=== PATIENT | female | born 1960 | race Caucasian/White ===

== ENCOUNTER 2024-02-12 20:19 | Inpatient (IN) | payer BC, MEDICARE, SELFPAY ==
[2024-02-12] VITALS (11 sets, daily range): BP systolic 140; BP diastolic 104; PULSE 60–76; RESP 22; TEMP 36.6; O2SAT 87–99; BMI 20.7
--- NOTE | 2024-02-12 20:46 | ED.GENADULT ---
HPI - General Adult General Date Seen: 02/12/24 Chief complaint: Fall/Minor Trauma Stated complaint: Fall Time Seen by Provider: 02/12/24 20:46 History of Present Illness HPI narrative: This is a 63-year-old generally healthy female presenting to the ER this evening for evaluation of injuries after she had a ground level fall. She was walking her dog and it abruptly pulled hard on its leash and pulled her forward. She fell because the dog pulled her off balance. She landed on her side and scraped her right knee and injured her right shoulder. She is having severe right shoulder pain and really in minimal to no pain in the right knee at all. She did not hit her head or injure her neck. She has severe 10/10 pain in her right upper arm and right shoulder. Also an abrasion to her right knee a. Related Data Home Medications Medication Instructions Recorded Confirmed fluticasone propionate 50 intranasal 02/13/24 mcg/actuation nasal spray,suspension ibuprofen 200 mg tablet (IBU-200) 200 mg PO Q8H PRN 02/13/24 02/13/24 Allergies Allergy/AdvReac Type Severity Reaction Status Date / Time No Known Drug Allergies Allergy Verified 02/12/24 20:31 PFSH [facility] Medical History (Updated 02/13/24 @ 00:29 by Kirt Rosario MD) Concussion ?S06.0XAA - Concussion with loss of consciousness status unknown, initial encounter (ICD-10) Humeral fracture ?S42.309A - Unspecified fracture of shaft of humerus, unspecified arm, initial encounter for closed fracture (ICD-10) Ureterolithiasis ?N20.1 - Calculus of ureter (ICD-10) Surgical History (Updated 02/12/24 @ 23:18 by Kirt Rosario MD) H/O lithotripsy ?Z98.890 - Other specified postprocedural states (ICD-10) History of hysterectomy ?Z90.710 - Acquired absence of both cervix and uterus (ICD-10) History of ureter stent Family History (Updated 02/13/24 @ 00:17 by Kirt Rosario MD) Father Diabetes Alzheimers disease Mother Osteoporosis Alzheimers disease Son Marfan syndrome Social History Smoking Status: Never smoker Do you use any of these nicotine containing products: None How often do you have a drink containing alcohol: never How often do you have six or more drinks on one occasion: Never AUDIT-C Alcohol total score: 0 Non-prescribed substance use: denies use Exam Narrative: Exam Narrative: Constitutional: Appears well-developed and well-nourished. Alert. Very uncomfortable due to shoulder pain. supportively at her side. HENT: Head: Atraumatic. Nose: Nose normal. Mouth/Throat: Oral mucosa is clear and moist. no trismus. Pharynx normal. Eyes: Conjunctivae normal. EOM normal. Pupils equal, round, and reactive to light. No scleral icterus. Neck: Normal range of motion. Neck supple. No tracheal deviation present. No posterior midline tenderness or step-off. Cardiovascular: Normal rate, regular rhythm. No gallop. No friction rub. No murmur heard. Symmetric radial artery pulses Pulmonary/Chest: Effort normal. No stridor. No respiratory distress. No wheezes. No rales. No rhonchi . No tenderness. Abdominal: Soft. Bowel sounds normal. No distension. No mass. No tenderness. No rebound. No guarding. Musculoskeletal: RUE: Range of motion limited by shoulder pain. She has tenderness over the shoulder with some swelling but no definitive deformity. Distal humerus, elbow, forearm, wrist, hand, fingers, thumb are nontender. Intact axillary, radial, median, ulnar nerve sensory function. LUE: Normal range of motion. No tenderness. No deformity RLE: Normal range of motion. No edema. No tenderness. No deformity superficial abrasion over anterior knee. No bony tenderness or deformity. LLE: Normal range of motion. No edema. No tenderness. No deformity Neurological: Alert and oriented to person, place, and time. Normal strength. CN II-VII intact. No sensory deficit. GCS eye subscore is 4. GCS verbal subscore is 5. GCS motor subscore is 6. Normal coordination Skin: Skin is warm and dry. No rash noted. No pallor. Normal capillary refill. Psychiatric: Normal mood. Uncomfortable due to pain Const: Vital Signs, click to edit/add: Vital Signs - 24 hr 02/12/24 20:27 02/12/24 20:28 02/12/24 20:29 Temperature 97.9 F Pulse Rate 60 66 Pulse Rate [Left P ulse Oximeter] 68 Respiratory Rate 22 Blood Pressure 140/104 H Blood Pressure [Ri ght Upper Arm] 140/104 H Pulse Oximetry 98 97 98 Oxygen Delivery Me thod Room Air 02/12/24 20:30 02/12/24 20:48 02/12/24 21:00 Temperature Pulse Rate 61 66 74 Pulse Rate [Left P ulse Oximeter] Respiratory Rate Blood Pressure Blood Pressure [Ri ght Upper Arm] Pulse Oximetry 98 99 98 Oxygen Delivery Me thod 02/12/24 21:15 02/12/24 21:30 02/12/24 22:29 Temperature Pulse Rate 66 66 73 Pulse Rate [Left P ulse Oximeter] Respiratory Rate Blood Pressure Blood Pressure [Ri ght Upper Arm] Pulse Oximetry 95 97 87 L Oxygen Delivery Me thod 02/12/24 22:30 02/12/24 22:45 02/13/24 00:00 Temperature Pulse Rate 68 76 Pulse Rate [Left P ulse Oximeter] 76 Respiratory Rate 16 Blood Pressure Blood Pressure [Ri ght Upper Arm] 106/66 Pulse Oximetry 90 93 95 Oxygen Delivery Me od Room Air Course Vital Signs Vital signs: Initial Vital Signs Temperature 97.9 F 02/12/24 20:27 Temperature Source Temporal Artery Scan 02/12/24 20:27 Pulse Rate 68 02/12/24 20:27 Pulse Rhythm Regular 02/12/24 20:27 Respiratory Rate 22 02/12/24 20:27 Blood Pressure 140/104 H 02/12/24 20:27 Blood Pressure Mean 116 H 02/12/24 20:27 Blood Pressure Position Semi-Fowlers 02/12/24 20:27 Pulse Oximetry 98 02/12/24 20:27 Oxygen Delivery Method Room Air 02/12/24 20:27 Vital Signs Temperature 97.9 F 02/12/24 20:27 Pulse Rate 68 02/12/24 20:27 Respiratory Rate 22 02/12/24 20:27 Blood Pressure 140/104 H 02/12/24 20:27 Pulse Oximetry 98 02/12/24 20:27 Oxygen Delivery Method Room Air 02/12/24 20:27 Temperature 97.9 F 02/12/24 20:27 Pulse Rate 76 02/13/24 00:00 Respiratory Rate 16 02/13/24 00:00 Blood Pressure 106/66 02/13/24 00:00 Pulse Oximetry 95 02/13/24 00:00 Oxygen Delivery Method Room Air 02/13/24 00:00 Medications Administered Medications: Generic Name Dose Route Start Last Admin Trade Name Santanaq PRN Reason Stop Dose Admin Hydromorphone HCl 0.5 - 1 mg 02/12/24 23:19 02/13/24 01:26 Hydromorphone 0.5 Mg/0.5 Ml Inj IVP 1 mg Q1H PRN Administration Lactated Ringer's 1,000 mls @ 75 mls/hr 02/12/24 23:20 02/13/24 01:23 Lactated Ringers 1000 Ml IV 75 mls/hr .[id number] ART Administration Ondansetron HCl 4 mg 02/12/24 23:19 02/12/24 23:41 Ondansetron 2 Mg/Ml Inj IVP 4 mg Q4H PRN Administration Nausea Discontinued Medications Generic Name Dose Route Start Last Admin Trade Name Santanaq PRN Reason Stop Dose Admin Bupivacaine HCl/Epinephrine Bitart 30 ml 02/12/24 23:51 02/13/24 00:24 Bupivacaine 0.25 %/Epi 1:200k 30 Ml INJECTION 02/12/24 23:52 30 ml ONCE ONE Administration Fentanyl 50 mcg 02/12/24 20:55 02/12/24 21:00 Fentanyl 100 Mcg/2 Ml Inj IVP 02/12/24 20:56 50 mcg ONCE ONE Administration Hydromorphone HCl 0.5 mg 02/12/24 21:32 02/12/24 21:35 Hydromorphone 0.5 Mg/0.5 Ml Inj IVP 02/12/24 21:33 0.5 mg ONCE ONE Administration Hydromorphone HCl 0.5 mg 02/12/24 22:05 02/12/24 22:10 Hydromorphone 0.5 Mg/0.5 Ml Inj IVP 02/12/24 22:06 0.5 mg ONCE ONE Administration Hydromorphone HCl 0.5 mg 02/12/24 22:19 02/12/24 22:57 Hydromorphone 0.5 Mg/0.5 Ml Inj IVP 02/12/24 22:20 0.5 mg ONCE ONE Administration Lactated Ringer's 500 mls @ 500 mls/hr 02/12/24 23:52 02/13/24 00:20 Lactated Ringers 500 Ml IV 05/15/24 00:51 500 mls/hr .Q1H ONE Administration Ondansetron HCl 4 mg 02/12/24 20:55 02/12/24 21:02 Ondansetron 2 Mg/Ml Inj IVP 02/12/24 20:56 4 mg ONCE ONE Administration Medical Decision Making MDM Narrative Medical decision making narrative: This is a very pleasant but unlucky 63-year-old female presenting to the ER today for evaluation of severe right shoulder pain after a ground level fall. She was pulled off balance by her large dog when it pulled on its leash this evening. She did injure her right shoulder. Initial differential would include proximal humerus fracture, glenohumeral joint dislocation, separation, distal clavicle fracture, among others. X-rays confirm a fairly significantly displaced fracture through the neck of the humerus bone. She is quite uncomfortable with this fracture. She did not have much pain relief after fentanyl but we switched to Dilaudid. After a total of 2 mg of Dilaudid still uncomfortable but having some nausea. Discussed with orthopedics and hospitalist. They will attempt hematoma block for additional analgesia. Orthopedic PA reviewed her x-rays and requested that we obtain CT scan-obtained here in the ER. At this point, ortho indicates that typically management of proximal who is fracture, even wound 1 with this degree of displacement would typically be non operative. However with the patient's degree of pain and relatively young age, surgical fixation may be indicated. We will admit the patient to the hospitalist service for pain control overnight and she will have orthopedic consultation in the morning. We will make her NPO after midnight in case they do plan to add her on for surgery tomorrow morning. Orthopedic PAYAL assures me that if this fracture become surgical it could be appropriately managed by the ortho team here in [place]. Although she is uncomfortable from the fracture there is no evidence for neurovascular compromise or compartment syndrome at this time. The remainder of her head to toe trauma exam is negative save for superficial abrasions to her right knee. Lab Data Labs: Lab Results 02/12/24 Range/Units 20:52 WBC 5.42 (4.50-11.00) K/uL RBC 4.01 (4.00-5.20) m/uL Hgb 12.3 (12.0-16.0) gm/dL Hct 36.2 (33.0-51.0) % MCV 90 (80-100) fL MCH 31 (26-34) pg MCHC 34 (32-36) gm/dL RDW Coeff of Yunier 12.6 (11.5-15.5) % Plt Count 308 (140-440) K/uL Neut % (Auto) 58.5 (42.0-72.0) % Lymph % (Auto) 29.7 (20-44) % Cobb % (Auto) 7.4 (0.0-11.0) % Eos % (Auto) 2.8 (0.0-7.0) % Baso % (Auto) 0.9 (0.0-3.0) % Neut # (Auto) 3.17 (1.7-7.0) K/uL Lymph # (Auto) 1.61 (0.90-2.90) K/uL Cobb # (Auto) 0.40 (0.00-0.90) K/UL Eos # (Auto) 0.15 (0.00-0.50) K/uL Baso # (Auto) 0.05 (0.00-0.30) K/uL Abs Immat Gran (auto) 0.04 (0.00-0.30) K/uL Imm/Tot Granulo (auto) 0.7 % Sodium 139 (135-149) mmol/L Potassium 4.1 (3.6-5.1) mmol/L Chloride 104 (96-114) mmol/L Carbon Dioxide 29 (20-32) mmol/L Anion Gap 6 L (7-15) mEq/L BUN 29 (7-30) mg/dL Creatinine 0.7 (0.5-1.5) mg/dL Estimated Creat Clear 54.62 Estimated GFR 96 ml/min Glucose 133 H (60-115) mg/dL Calcium 10.0 (8.4-10.6) mg/dL
--- NOTE | 2024-02-12 20:55 | XR_ITS ---
Patient: CHENG ALAS Facility:?[facility] Patient ID:?[id number] Site Patient ID:?[id number] Site :?1960 Study:?XRay-Shoulder Right 2V-02/12/2024 9:53:42 PM Ordering Physician:DAISY Final Report: INDICATION: Fell while walking dogs, severe right shoulder pain. TECHNIQUE: Right shoulder 2 view. COMPARISON: None. FINDINGS: Exam is significantly limited by suboptimal positioning. There appears to be an acute comminuted fracture of the left humeral head/neck with medial displacement of the distal fracture fragment. No definite dislocation. Possible fracture of the right 7th rib. Soft tissues are unremarkable. IMPRESSION: 1. There appears to be an acute comminuted displaced fracture of the proximal humerus, however evaluation is limited. 2. Possible fracture of the right 7th rib. Dictated by Melissa Paulson MD @ 02/12/2024 10:15:12 PM Signed by:?Melissa Paulson MD @02/12/2024 10:15:12 PM (Electronic Signature)
[2024-02-12] MEDS: fentaNYL 100 MCG/2 ML inj 50 MCG IVP (21:00)
[2024-02-12] MEDS: ONDANSETRON 2 MG/ML inj 4 MG IVP ×2 (21:02→23:41)
[2024-02-12] MEDS: HYDROmorphone 0.5 mg/0.5 ml inj IVP ×4 (21:35→23:41)
--- NOTE | 2024-02-12 22:58 | CT_ITS ---
Patient: CHENG ALAS Facility:?[facility] Patient ID:?[id number] Site Patient ID:?[id number]. Site :?1960 Study:?CT-Shoulder Right W/O-02/12/2024 11:42:40 PM Ordering Physician:DAISY Final Report: Indication: Right shoulder fracture. Technique: Noncontrast CT of the right shoulder. Please note that all CT scans at this facility use dose modulation, iterative reconstruction, and/or weight-based dosing when appropriate to reduce radiation dose to as low as reasonably achievable. Comparison: Right shoulder radiographs 01/13/2024 Findings: Acute, comminuted, moderately displaced, impacted fracture of the right humeral head and surgical neck with involvement of both tuberosities and the bicipital groove. Associated joint effusion, likely hemarthrosis. No dislocation of the humeral head from glenoid fossa. The scapula and clavicle are intact. No aggressive osseous lesion. The imaged lung parenchyma is unremarkable. No pneumothorax. The surrounding soft tissues are otherwise unremarkable. Impression: Acute, comminuted, moderately displaced, impacted fracture of the right humeral head and surgical neck with involvement of both tuberosities and the bicipital groove. Please note that all CT scans at this facility use dose modulation, iterative reconstruction, and/or weight-based dosing when appropriate to reduce radiation dose to as low as reasonably achievable. Dictated by Bernabe Torres MD @ 02/13/2024 12:26:08 AM Signed by:?Bernabe Torres MD @02/13/2024 12:26:08 AM (Electronic Signature)
--- NOTE | 2024-02-12 23:14 | ED.NURSE ---
pt pants cut off. Pt ok with them being cut off for removal. Pt right knee abrasion, bandage and bacitracin applied. No other injuries noted.
--- NOTE | 2024-02-12 23:23 | P.IMHP_ITS ---
Hospitalist- H&P: HPI History of Present Illness Time Seen by Provider: 23:20 Date Seen: 02/12/24 Chief complaint: Fall Narrative: Kiah Reinoso is a 63 year old female Admitted through the emergency department today after she fell injuring her right shoulder while walking her dog. She did not lose consciousness. She did not injure her head or neck. She reports generally being healthy. Her only medication is fluticasone nasal spray and p.r.n. ibuprofen. She has had previous surgeries for kidney stones and hysterectomy without problems with bleeding or blood clotting but she does get nauseated from anesthesia. She is intolerant of codeine (and apparently other opioids) due to nausea and vomiting. Review of Systems Narrative: No other injury and no recent illness. [facility] Medical History (Updated 02/13/24 @ 00:29 by Kirt Rosario MD) Concussion ?S06.0XAA - Concussion with loss of consciousness status unknown, initial encounter (ICD-10) Humeral fracture ?S42.309A - Unspecified fracture of shaft of humerus, unspecified arm, initial encounter for closed fracture (ICD-10) Ureterolithiasis ?N20.1 - Calculus of ureter (ICD-10) Surgical History (Updated 02/12/24 @ 23:18 by Kirt Rosario MD) H/O lithotripsy ?Z98.890 - Other specified postprocedural states (ICD-10) History of hysterectomy ?Z90.710 - Acquired absence of both cervix and uterus (ICD-10) History of ureter stent Family History (Updated 02/13/24 @ 00:17 by Kirt Rosario MD) Father Diabetes Alzheimers disease Mother Osteoporosis Alzheimers disease Son Marfan syndrome Social History Smoking Status: Never smoker Do you use any of these nicotine containing products: None How often do you have a drink containing alcohol: never How often do you have six or more drinks on one occasion: Never AUDIT-C Alcohol total score: 0 Non-prescribed substance use: denies use Meds Home Medications and Allergies Home Medications Medication Instructions Recorded Confirmed Type fluticasone propionate 50 intranasal 02/13/24 History mcg/actuation nasal spray,suspension ibuprofen 200 mg tablet (IBU-200) 200 mg PO Q8H PRN 02/13/24 02/13/24 History Allergies Allergy/AdvReac Type Severity Reaction Status Date / Time No Known Drug Allergies Allergy Verified 02/12/24 20:31 Exam Narrative: Exam Narrative: She is sleepy but arouses to voice. Has had multiple doses of fentanyl and Dilaudid for pain. She answers questions appropriately and is a oriented to her circumstances. Head is without apparent trauma. Eyes are normal. Oropharynx with dry mucous membranes. Neck is supple without mass or adenopathy. Respirations are clear to auscultation. Cardiovascular: S1, S2, regular rate and rhythm. Abdomen is soft without tenderness or mass. Lower extremities are normal. Left upper extremity is also normal. No edema. Intact pedal pulses. Right upper extremity has moderate swelling around the proximal humerus. She is exquisitely tender there. Swelling is great enough that there is no obvious deformity noted. She has an intact radial pulses and intact sensation in her hands. She moves her fingers well. Const: Vital Signs, click to edit/add: Vital Signs - 24 hr 02/12/24 20:27 02/12/24 20:28 02/12/24 20:29 Temperature 97.9 F Pulse Rate 60 66 Pulse Rate [Left P ulse Oximeter] 68 Respiratory Rate 22 Blood Pressure 140/104 H Blood Pressure [Ri ght Upper Arm] 140/104 H Pulse Oximetry 98 97 98 Oxygen Delivery Me thod Room Air 02/12/24 20:30 02/12/24 20:48 02/12/24 21:00 Temperature Pulse Rate 61 66 74 Pulse Rate [Left P ulse Oximeter] Respiratory Rate Blood Pressure Blood Pressure [Ri ght Upper Arm] Pulse Oximetry 98 99 98 Oxygen Delivery Me thod 02/12/24 21:15 02/12/24 21:30 02/12/24 22:29 Temperature Pulse Rate 66 66 73 Pulse Rate [Left P ulse Oximeter] Respiratory Rate Blood Pressure Blood Pressure [Ri ght Upper Arm] Pulse Oximetry 95 97 87 L Oxygen Delivery Me thod 02/12/24 22:30 02/12/24 22:45 Temperature Pulse Rate 68 76 Pulse Rate [Left P ulse Oximeter] Respiratory Rate Blood Pressure Blood Pressure [Ri ght Upper Arm] Pulse Oximetry 90 93 Oxygen Delivery Me thod Documenting provider has reviewed patient's vital signs: yes Hospitalist - H&P: Result Imaging right shoulder: Radiologist's impression: Final Report: INDICATION: Fell while walking dogs, severe right shoulder pain. TECHNIQUE: Right shoulder 2 view. COMPARISON: None. FINDINGS: Exam is significantly limited by suboptimal positioning. There appears to be an acute comminuted fracture of the left humeral head/neck with medial displacement of the distal fracture fragment. No definite dislocation. Possible fracture of the right 7th rib. Soft tissues are unremarkable. IMPRESSION: 1. There appears to be an acute comminuted displaced fracture of the proximal humerus, however evaluation is limited. 2. Possible fracture of the right 7th rib. CT right humerus: Radiologist's impression: Final Report: Indication: Right shoulder fracture. Technique: Noncontrast CT of the right shoulder. Please note that all CT scans at this facility use dose modulation, iterative reconstruction, and/or weight-based dosing when appropriate to reduce radiation dose to as low as reasonably achievable. Comparison: Right shoulder radiographs 01/13/2024 Findings: Acute, comminuted, moderately displaced, impacted fracture of the right humeral head and surgical neck with involvement of both tuberosities and the bicipital groove. Associated joint effusion, likely hemarthrosis. No dislocation of the humeral head from glenoid fossa. The scapula and clavicle are intact. No aggressive osseous lesion. The imaged lung parenchyma is unremarkable. No pneumothorax. The surrounding soft tissues are otherwise unremarkable. Impression: Acute, comminuted, moderately displaced, impacted fracture of the right humeral head and surgical neck with involvement of both tuberosities and the bicipital groove. Assessment and Plan Assessment and plan (1) Humeral fracture: Problem comment: Displaced humeral head/humeral neck fracture. Admit for pain control, orthopedic consult and possible surgery. Status: Acute (2) Inadequate pain control: Problem comment: Difficulties with pain control due to nausea from opioids. Pending response to hematoma block with Marcaine. Status: Acute (3) Rib fracture: Problem comment: Possible fracture of right 7th rib. Consider chest x-ray when pain control is better. Status: Suspected Plan Patient is admitted for ongoing evaluation and treatment of pain related to humeral head fracture. Total Time Spent Total Time Spent: Total time spent today is 90 minutes, 60 minutes in coordination of care and discussion with patient's and other providers about management of pain and humerus fracture Procedures Additional Procedures Additional Procedure Details: Due to poor pain control and poor tolerance of opioids I discussed with patient using a hematoma block around her fracture to see if she can get better pain relief. After discussing risks and benefits we proceed. Using sterile technique I injected 0.25% Marcaine plus epinephrine, 10 mL, into the area of her proximal humerus/humeral neck fracture from a lateral approach through the deltoid.
[2024-02-13] VITALS (27 sets, daily range): BP systolic 90–127; BP diastolic 53–86; PULSE 59–86; RESP 12–18; TEMP 36.2–36.9; O2SAT 91–100; BMI 21.7
--- NOTE | 2024-02-13 00:11 | PC.NURSE ---
Assist with Dr Rosario for right arm block.
[2024-02-13 00:16] LABS: Basophils Absolute Auto 0.05 K/uL (0.00-0.30); Basophils Percent Auto 0.9 % (0.0-3.0); Eosinophils Absolute Auto 0.15 K/uL (0.00-0.50); Eosinophils Percent Auto 2.8 % (0.0-7.0); Hematocrit 36.2 % (33.0-51.0); Hemoglobin* 12.3 gm/dL (12.0-16.0); Immature Granulocytes Abs Auto 0.04 K/uL (0.00-0.30); Immature Granulocytes Pct Auto 0.7 %; Lymphocytes Absolute Auto 1.61 K/uL (0.90-2.90); Lymphocytes Percent Auto 29.7 % (20-44); Mean Corpuscular HGB Conc 34 gm/dL (32-36); Mean Corpuscular Hemoglobin 31 pg (26-34); Mean Corpuscular Volume 90 fL (80-100); Monocytes Percent Auto 7.4 % (0.0-11.0); Neutrophils Absolute Auto 3.17 K/uL (1.7-7.0); Neutrophils Percent Auto 58.5 % (42.0-72.0); Platelet Count* 308 K/uL (140-440); RDW Coefficient of Variation % 12.6 % (11.5-15.5); Red Blood Count 4.01 m/uL (4.00-5.20); White Blood Count* 5.42 K/uL (4.50-11.00)
[2024-02-13 00:19] LABS: Slide Review Reflex No
[2024-02-13] MEDS: LACTATED RINGERS 500 ML 500 ML IV (00:20)
[2024-02-13] MEDS: BUPIVACAINE 0.25 %/EPI 1:200K 30 ml INJECTION (00:24)
[2024-02-13 00:31] LABS: Chloride* 104 mmol/L (96-114); Potassium* 4.1 mmol/L (3.6-5.1); Sodium* 139 mmol/L (135-149)
[2024-02-13 00:33] LABS: Creatinine* 0.7 mg/dL (0.5-1.5); Est. Creatinine Clearance* 54.62; Estimated Glomerular Filt Rate 96 ml/min
[2024-02-13 00:34] LABS: Anion Gap 6 mEq/L (7-15); Blood Urea Nitrogen* 29 mg/dL (7-30); Carbon Dioxide* 29 mmol/L (20-32); Glucose* 133 mg/dL (60-115)
--- NOTE | 2024-02-13 00:55 | ED.NURSE ---
RN to RN report done. Pt going to room 278. Pt taken to floor by debug technician.
[2024-02-13] MEDS: LACTATED RINGERS 1000 ML 1,000 ML 75 ML IV ×3 (01:23→14:12)
[2024-02-13] MEDS: HYDROmorphone 0.5 mg/0.5 ml inj IVP ×3 (01:26→11:23)
[2024-02-13] MEDS: ONDANSETRON 2 MG/ML inj 4 MG IVP ×2 (06:48→20:38)
--- NOTE | 2024-02-13 07:31 | PC.NURSE ---
End of shift note: Pt noted to be alert & oriented x 4 upon assessment. ROM to R shoulder/arm restricted due to current suspected fx. Pt noted to be in ?10/? pain upon admission to med/surg unit with PRN Dilaudid given and ice provided to R shoulder. EKG completed per order with NSR noted. Pt currently ordered to be NPO in case she needs to have surgical repair of R shoulder performed. PIV to L AC intact and patent. PRN Zofran administered IVP this morning for c/o nausea after receiving PRN Dilaudid. Pt has had no vomiting noted this shift. Pt pivot transferred from bed to bedside commode with assist of 2 this morning using gait belt. Abrasion to R anterior knee covered with dressing which is C/D/I. Pt continent of bladder this shift. Pt currently on LR at 75 mL/hr per order.
--- NOTE | 2024-02-13 09:49 | XR_ITS ---
Patient: CHENG ALAS Facility:?[facility] Patient ID:?[id number] Site Patient ID:?[id number]. Site :?1960 Study:?XRay-Hip Right 2 VIEW WITH PELVIS-02/13/2024 11:32:21 AM Ordering Physician:BOBBI BLANC Final Report: Indication: Trauma. Technique: Pelvis/right hip, 3 views. Comparison: None. Findings/Impression: Bones: Alignment is normal. No displaced fractures or bone lesions. Joint spaces: Unremarkable. Soft tissues: Unremarkable. Dictated by Ulises Knutson MD @ 02/13/2024 12:02:44 PM Signed by:?Ulises Knutson MD @02/13/2024 12:02:44 PM (Electronic Signature)
[2024-02-13] MEDS: hydrOXYzine pamoate 25 MG CAPSULE PO (10:42)
[2024-02-13] MEDS: PROCHLORPERAZINE 5 MG/ML VIAL IV (10:42)
[2024-02-13] MEDS: LIDOCAINE 5% PATCH 1 PATCH TRANSDERMA (10:43)
--- NOTE | 2024-02-13 10:58 | P.IMPN_ITS ---
Progress Note: A&P Assessment and plan (1) Humeral fracture: Problem details: CT shows acute comminuted moderately displaced impacted fracture of the right humeral head and surgical neck with involvement of both tuberosities and the bicipital groove Dr. Logan recommending surgical intervention, possibly this afternoon otherwise Remains NPO for now Pain and nausea management to include lidocaine patch, Vistaril p.r.n., Dilaudid p.r.n., ice, Compazine/Zofran PT/OT when appropriate Status: Acute (2) Inadequate pain control: Problem details: Difficulties with pain control due to nausea from opioids. Reports a short- term, suboptimal response to hematoma block with Marcaine Status: Acute (3) Rib fracture: Problem details: Possible fracture of right 7th rib. Consider chest x-ray when pain control is better. May need to wait postoperatively as limited ROM RUE Status: Suspected (4) Hip pain, right: Problem details: Status post fall. Pelvis/right hip x-ray ordered Pain management as above Status: Acute Plan OR for surgical repair 02/12 or 02/13, pending Time Spent With Patient Total time spent: Total time spent caring for the patient today was 45 minutes. This includes time spent for the visit reviewing the chart, time spent during the visit, time spent after the visit and documentation and planning in coordination of care. Subjective Date Seen: 02/13/24 Interval history: Patient is seen this morning with at bedside. Continues to be in quite a bit of pain of the right shoulder. Describes intermittent dull stabbing pains. Having waves of nausea. Denies headache or dizziness. Denies chest pain or shortness of breath. Just met with the orthopedic surgeon, Dr. Jones, recommending surgical intervention, possibly late this afternoon or tomorrow. Plan to remain NPO for now. Patient also complains of right hip pain this morning. An x-ray has been ordered. Her at bedside asks when we are going to get her up to walk, telling us she needs to get her ass out of bed and walk. Exam Narrative: Exam Narrative: PHYSICAL EXAM General: Appears uncomfortable otherwise NAD HEENT: Normocephalic, atraumatic, sclera white, EOMI, oral mucosa moist Cardiovascular: RRR, S1S2. No pitting edema Pulmonary: CTA bilaterally without rhonchi, rales, expiratory wheezes. No dyspnea on room air Abdominal: Soft, nondistended, NTTP Neurological: Alert, answering questions appropriately, cranial nerves intact, no focal findings Extremities: No gross joint deformity or swelling. Right upper extremity self splinted at side. Neurovascularly intact Skin: Warm, dry. Const: Vital Signs, click to edit/add: Vital Signs - 24 hr 02/12/24 20:27 02/12/24 20:28 02/12/24 20:29 Temperature 97.9 F Pulse Rate 60 66 Pulse Rate [Left P ulse Oximeter] 68 Respiratory Rate 22 Blood Pressure 140/104 H Blood Pressure [Le ft Arm] Blood Pressure [Ri ght Upper Arm] 140/104 H Pulse Oximetry 98 97 98 Oxygen Delivery Me thod Room Air 02/12/24 20:30 02/12/24 20:48 02/12/24 21:00 Temperature Pulse Rate 61 66 74 Pulse Rate [Left P ulse Oximeter] Respiratory Rate Blood Pressure Blood Pressure [Le ft Arm] Blood Pressure [Ri ght Upper Arm] Pulse Oximetry 98 99 98 Oxygen Delivery Pr thod 02/12/24 21:15 02/12/24 21:30 02/12/24 22:29 Temperature Pulse Rate 66 66 73 Pulse Rate [Left P ulse Oximeter] Respiratory Rate Blood Pressure Blood Pressure [Le ft Arm] Blood Pressure [Ri ght Upper Arm] Pulse Oximetry 95 97 87 L Oxygen Delivery Pr thod 02/12/24 22:30 02/12/24 22:45 02/13/24 00:00 Temperature Pulse Rate 68 76 Pulse Rate [Left P ulse Oximeter] 76 Respiratory Rate 16 Blood Pressure Blood Pressure [Le ft Arm] Blood Pressure [Ri ght Upper Arm] 106/66 Pulse Oximetry 90 93 95 Oxygen Delivery Me thod Room Air 02/13/24 01:05 02/13/24 01:10 02/13/24 03:00 Temperature 97.7 F 97.7 F Pulse Rate Pulse Rate [Left P ulse Oximeter] 86 65 Respiratory Rate 16 16 16 Blood Pressure Blood Pressure [Le ft Arm] 124/77 121/69 Blood Pressure [Ri ght Upper Arm] Pulse Oximetry 97 97 98 Oxygen Delivery Pr thod Room Air Room Air Room Air Labs Labs: Laboratory Results - last 24 hr 02/12/24 20:52 WBC 5.42 RBC 4.01 Hgb 12.3 Hct 36.2 MCV 90 MCH 31 MCHC 34 RDW Coeff of Yunier 12.6 Plt Count 308 Neut % (Auto) 58.5 Lymph % (Auto) 29.7 [place] % (Auto) 7.4 Eos % (Auto) 2.8 Baso % (Auto) 0.9 Neut # (Auto) 3.17 Lymph # (Auto) 1.61 [place] # (Auto) 0.40 Eos # (Auto) 0.15 Baso # (Auto) 0.05 Abs Immat Gran (auto) 0.04 Imm/Tot Granulo (auto) 0.7 Sodium 139 Potassium 4.1 Chloride 104 Carbon Dioxide 29 Anion Gap 6 L BUN 29 Creatinine 0.7 Estimated Creat Clear 54.62 Estimated GFR 96 Glucose 133 H Calcium 10.0
--- NOTE | 2024-02-13 12:02 | P.ORCN_ITS ---
History of Present Illness HPI Date Seen: 02/13/24 Chief complaint: Fall Narrative: Kiah is a 63 year old female admitted through the emergency department 02/12/2024 after she fell injuring her right shoulder while walking her dog. The dog is the strong 75 lb dog. It pulled aggressively causing her to fall to the ground. Landed awkwardly on her right shoulder also right lateral hip. She did not lose consciousness. She did not injure her head or neck. Pain in the right shoulder is severe. Admitted overnight for pain control. Orthopedics consulted accordingly. She reports generally being healthy. Her only medication is fluticasone nasal spray and p.r.n. ibuprofen. She has had previous surgeries for kidney stones and hysterectomy without problems with bleeding or blood clotting but she does get nauseated from anesthesia. She is intolerant of codeine (and apparently other opioids) due to nausea and vomiting. [facility] Medical History Concussion ?S06.0XAA - Concussion with loss of consciousness status unknown, initial encounter (ICD-10) Humeral fracture ?S42.309A - Unspecified fracture of shaft of humerus, unspecified arm, initial encounter for closed fracture (ICD-10) Ureterolithiasis ?N20.1 - Calculus of ureter (ICD-10) Surgical History H/O lithotripsy ?Z98.890 - Other specified postprocedural states (ICD-10) History of hysterectomy ?Z90.710 - Acquired absence of both cervix and uterus (ICD-10) History of ureter stent Family History Father Diabetes Alzheimers disease Mother Osteoporosis Alzheimers disease Son Marfan syndrome Social History What is your current living situation?: I presently have a place to live Problems where you live: no known problems Problems where you live details: N/A In the past 12 months, utilities in danger of being shut off: no In past 12 months, lack of transportation kept you from medical appts, meetings, work, or getting things needed for daily living: no In the past 12 mos, have been you worried that your food would run out before you had money to buy more?: never true In the past 12 mos, the food you bought just didn't last and you didn't have money to buy more?: never true Highest level of school completed/degree received: Bachelor's degree Smoking Status: Never smoker Do you use any of these nicotine containing products: None Second hand tobacco smoke exposure: No How often do you have a drink containing alcohol: monthly or less Alcohol type: hard liquor How many standard drinks containing alcohol do you have on a typical day: 1 or 2 How often do you have six or more drinks on one occasion: Never AUDIT-C Alcohol total score: 1 Non-prescribed substance use: denies use Caffeine: Yes How often does anyone, including family, friends and others, physically hurt you : never How often does anyone, including family, friends and others, insult or talk down to you: never How often does anyone, including family, friends and others, threaten you with harm: never How often does anyone, including family, friends and others, scream or curse at you: never service: No Meds Home Medications and Allergies Home Medications Medication Instructions Recorded Confirmed Type fluticasone propionate 50 1 - 2 spray intranasal DAILY PRN 02/13/24 02/13/24 History mcg/actuation nasal spray,suspension ibuprofen 200 mg tablet (IBU-200) 200 mg PO Q8H PRN 02/13/24 02/13/24 History Allergies Allergy/AdvReac Type Severity Reaction Status Date / Time No Known Drug Allergies Allergy Verified 02/12/24 20:31 Ortho Exam Narrative Exam Narrative: Patient is alert, but slightly uncomfortable. Laying supine in bed. She has significant pain about the right shoulder. Even at rest. Worse with any palpation or attempted motion. There is some the yellow colored skin which looks like Betadine cleansing. Reportedly she had an injection at the shoulder location in the ED. Neurologically intact distally in the radial, ulnar, and median nerve distribution. Palpable radial pulse. Tender to palpation over the lateral right hip. [place] the hip produces no groin pain. Neurologic intact distally in superficial and deep peroneal as well as plan distribution. 2+ DP and PT pulse. Const Vital Signs, click to edit/add: Vital Signs - 24 hr 02/12/24 20:27 02/12/24 20:28 02/12/24 20:29 Temperature 97.9 F Pulse Rate 60 66 Pulse Rate [Left Pulse Oximeter] 68 Respiratory Rate 22 Blood Pressure 140/104 H Blood Pressure [Left Arm] Blood Pressure [Right Upper Arm] 140/104 H Pulse Oximetry 98 97 98 Oxygen Delivery Method Room Air 02/12/24 20:30 02/12/24 20:48 02/12/24 21:00 Temperature Pulse Rate 61 66 74 Pulse Rate [Left Pulse Oximeter] Respiratory Rate Blood Pressure Blood Pressure [Left Arm] Blood Pressure [Right Upper Arm] Pulse Oximetry 98 99 98 Oxygen Delivery Method 02/12/24 21:15 02/12/24 21:30 02/12/24 22:29 Temperature Pulse Rate 66 66 73 Pulse Rate [Left Pulse Oximeter] Respiratory Rate Blood Pressure Blood Pressure [Left Arm] Blood Pressure [Right Upper Arm] Pulse Oximetry 95 97 87 L Oxygen Delivery Method 02/12/24 22:30 02/12/24 22:45 02/13/24 00:00 Temperature Pulse Rate 68 76 Pulse Rate [Left Pulse Oximeter] 76 Respiratory Rate 16 Blood Pressure Blood Pressure [Left Arm] Blood Pressure [Right Upper Arm] 106/66 Pulse Oximetry 90 93 95 Oxygen Delivery Method Room Air 02/13/24 01:05 02/13/24 01:10 02/13/24 03:00 Temperature 97.7 F 97.7 F Pulse Rate Pulse Rate [Left Pulse Oximeter] 86 65 Respiratory Rate 16 16 16 Blood Pressure Blood Pressure [Left Arm] 124/77 121/69 Blood Pressure [Right Upper Arm] Pulse Oximetry 97 97 98 Oxygen Delivery Method Room Air Room Air Room Air 02/13/24 10:00 02/13/24 10:00 Temperature 98.4 F Pulse Rate Pulse Rate [Left Pulse Oximeter] 65 68 Respiratory Rate 16 16 Blood Pressure Blood Pressure [Left Arm] 122/75 Blood Pressure [Right Upper Arm] Pulse Oximetry 94 Oxygen Delivery Method Room Air Results Labs Labs: Laboratory Results - last 48 hr 02/12/24 20:52 WBC 5.42 RBC 4.01 Hgb 12.3 Hct 36.2 MCV 90 MCH 31 MCHC 34 RDW Coeff of Yunier 12.6 Plt Count 308 Neut % (Auto) 58.5 Lymph % (Auto) 29.7 [place] % (Auto) 7.4 Eos % (Auto) 2.8 Baso % (Auto) 0.9 Neut # (Auto) 3.17 Lymph # (Auto) 1.61 [place] # (Auto) 0.40 Eos # (Auto) 0.15 Baso # (Auto) 0.05 Abs Immat Gran (auto) 0.04 Imm/Tot Granulo (auto) 0.7 Sodium 139 Potassium 4.1 Chloride 104 Carbon Dioxide 29 Anion Gap 6 L BUN 29 Creatinine 0.7 Estimated Creat Clear 54.62 Estimated GFR 96 Glucose 133 H Calcium 10.0 Diagnostic results Additional Comments: Two views right shoulder from [facility] dated 02/12/2024 were ordered by different provider and reviewed by me. This demonstrates a right proximal humerus fracture. Details are challenging to assess given overlap of bone structures. This is clearly at the very least a 2 part proximal humerus fracture. The shaft is anteriormedially translated/displaced from the head approximately 90+%. CT scan right shoulder from [facility] dated 02/12/2024 again ordered by different provider in reviewed by me. This shows a comminuted proximal humerus fracture that is moderate to severely displaced that appears to have 4 part involvement including both tuberosities, bicipital groove, and head separate from the shaft. Finally, AP pelvis and two views the right hip including cross-table lateral obtained from [facility] dated 02/13/2024 were ordered by a different provider and reviewed by me. This shows no acute fractures or avulsions. No signs of AVN. Well-preserved joint space. Assessment and Plan Assessment and plan (1) Humeral fracture: Problem comment: CT shows acute comminuted moderately displaced impacted fracture of the right humeral head and surgical neck with involvement of both tuberosities and the bicipital groove Dr. Logan recommending surgical intervention, possibly this afternoon otherwise Remains NPO for now Pain and nausea management to include lidocaine patch, Vistaril p.r.n., Dilaudid p.r.n., ice, Compazine/Zofran PT/OT when appropriate Status: Acute Total time spent: Total time spent is greater than 50% in coordination of care (as documented) at patient's floor/unit and/or counseling patient: (2) Inadequate pain control: Problem comment: Difficulties with pain control due to nausea from opioids. Reports a short- term, suboptimal response to hematoma block with Marcaine Status: Acute Total time spent: Total time spent is greater than 50% in coordination of care (as documented) at patient's floor/unit and/or counseling patient: (3) Rib fracture: Problem comment: Possible fracture of right 7th rib. Consider chest x-ray when pain control is better. May need to wait postoperatively as limited ROM RUE Status: Suspected Total time spent: Total time spent is greater than 50% in coordination of care (as documented) at patient's floor/unit and/or counseling patient: (4) Hip pain, right: Problem comment: Status post fall. Pelvis/right hip x-ray ordered Pain management as above Status: Acute Total time spent: Total time spent is greater than 50% in coordination of care (as documented) at patient's floor/unit and/or counseling patient: Plan The right proximal humerus fracture is a complex, comminuted fracture with substantial displacement. I do think surgery is indicated although I had a lengthy discussion with both the patient and her including helping them understand the pros and cons of nonoperative management, surgical intervention including ORIF versus reverse shoulder arthroplasty. Given the complex comminuted displaced nature to the fracture, the rate of avascular necrosis is significantly elevated (approaching 50% or more depending on which article 1 references). It is for this reason that I do believe a reverse shoulder arthroplasty is the right next step. We discussed again the postoperative timing, prognosis, expectations of motion, and risks of the surgery including infection, aseptic loosening, instability, hematoma, fracture, etc. After discussion pros and cons, indeed they elect to proceed with a right reverse shoulder arthroplasty. We will plan to do this today. The patient has remain NPO. I was able to connect/communicate with the hospitalist team adarsh harris. I would anticipate the patient would stay overnight tonight and be able to return to home tomorrow assuming medically she remains stable.
[2024-02-13] MEDS: MIDAZOLAM HCL 1 MG/ML inj IVP (13:32)
[2024-02-13] MEDS: fentaNYL 100 MCG/2 ML inj IVP (13:32)
--- NOTE | 2024-02-13 13:34 | SUR.PREOP ---
TIME?OUT:?1330 PT/RN/MDA?VERIFICATION?OF?SURGICAL?SITE,?PROCEDURE,?AND?CONSENT OBTAINED?PRIOR?TO?INVASIVE?PROCEDURE. all in agreement
--- NOTE | 2024-02-13 14:03 | P.NB_ITS ---
Nerve Block Nerve Block Time Seen by Provider: 13:30 Date Seen: 02/13/24 Type of block requested by surgeon for post-operative analgesia: supraclavicular Side: right Time out performed: Yes Verification of patient name: Yes Verification of date of : Yes Site marking: site marked Name of person performing procedure: Oliver Continuous monitoring Was continuous monitoring of O2 sat, B/P, environmental monitoring specialist, recorded every 15 minutes?: Yes Procedure Checklist: sterile prep, needles and gloves Ultrasound guided. Images saved: Yes Medications given in 5ml increments after negative aspiration: Ropivicaine %: 0.5 mL: 20 Needle gauge: 22 Decadron (mg): 10 Precedex (mcg): 25 Patient tolerated procedure well: Yes Block Charges Block Charge (with Pro Fee): Brachial Plexus Use of Ultrasound Machine for Block: Yes- US Guidance/pain block
[2024-02-13] MEDS: CEFAZOLIN 2 GM in 0.9 % SODIUM CHLORIDE Mini-bag 100 ML IVPB ×2 (14:05→20:37)
[2024-02-13] MEDS: TRANEXAMIC ACID 100 MG/ML INJ 1000 MG IV (14:08)
[2024-02-13] MEDS: LACTATED RINGERS 1000 ML 1,000 ML 100 ML IV (14:37)
--- NOTE | 2024-02-13 14:43 | PC.NURSE ---
Shift note ([id number]): The pt was c/o severe pain and Nausea this AM; pain and nausea were managed by ordered medication. The pt was resting comfortably after medication was given. Pt's spouse, Donato was at the bedside, supportive and caring for the patient. The pt appeared without any acute distress. The pt went to OR at about 1300
--- NOTE | 2024-02-13 15:53 | PM.ORPRC ---
Procedure Note Date of procedure: 02/13/24 Procedure: PREOPERATIVE DIAGNOSIS: 1. Right proximal humerus 4 part fracture with comminution and significant displacement, acute, closed POSTOPERATIVE DIAGNOSIS: 1. Right proximal humerus 4 part fracture with comminution and significant displacement, acute, closed PROCEDURE: 1. Right reverse shoulder arthroplasty for proximal humerus comminuted, displaced fracture SURGEON: Manuel Logan MD. LEAK OPERATOR PARAFFIN PLANT: Donato Jensen PA-C; Luis WILL - Of note, a skilled assistant professor of english was critical for this case to aid in patient positioning, tissue retraction, limb manipulation/positioning, retraction for glenoid exposure, which was challenging, awareness and protection of critical structures, and closure. ANESTHESIA: General plus supraclavicular block EBL: 200 ml IMPLANTS: DJ0 surgical Altivate humeral stem size 6 small shell, 108 mm cemented stem with P2 proximal porous coating vitamin E neutral poly small socket insert RSP glenoid base plate P2 porous coating with 4 perimeter locking screws 32 neutral glenosphere with retaining screw COMPLICATIONS: None evident INDICATIONS: The patient is a pleasant 63-year-old female who fell while walking her dog on 02/12/2024. Pain the right proximal humerus fracture. There is significant displacement and further inspection revealed significant comminution making this a 4 part proximal humerus fracture. Given the tremendous displacement, it was felt that risk for avascular necrosis was quite high and thus ORIF was not recommended. Instead, reverse shoulder arthroplasty was suggested with a cemented humeral stem. DESCRIPTION OF PROCEDURE: Following a thorough discussion of risks, benefits, and alternatives, consent was obtained and the left shoulder was marked. The patient was brought to the operating room and placed supine on the operating table. Induction of anesthesia was undertaken. 2 g IV Ancef and 1 g tranexamic acid was administered within 1 hr of incision preoperatively. Appropriate time-out was performed identifying proper patient, site, and procedure. The operative extremity was prepped and draped in the appropriate sterile fashion using ChloraPrep after the patient was positioned in the lazy beach chair position with head in neutral alignment and all bony prominences well padded. A longitudinal incision was made for deltopectoral approach. Deltoid was retracted laterally. Cephalic vein was identified and retracted laterally as well. Vein was spared/protected throughout the case. The clavipectoral fascia was identified and divided longitudinally staying lateral to the conjoined tendon / coracoid. The conjoined tendon was protected with a blunt Hohmann. The long head of biceps tendon was identified and helped with identification of proximal humerus rotation. The pectoralis major tendon was also identified and helped with height assessment of the mitral stem insertion. The rotator cuff was inspected and indeed found to have tuberosity displacement as the CT scan suggested. We debulked the tuberosity bone so that it would fit around the stem more appropriately. But it was maintained in an effort to try to help with tuberosity repair following stem insertion in the in the case. The humerus was retracted posteriorly. The remaining humeral head outside tuberosities was excised/removed as it had virtually no soft tissue attachments still. The subscap was protected anteriorly and the labrum/long head biceps origin was excised circumferentially. The capsule was released along the anterior and inferior portions of the glenoid cautiously with a Hernandez elevator being careful not to penetrate deep. The glenoid had appropriate exposure, and was prepared with the cannulated system with a target of approximately 5-10? of inferior tilt and neutral anteversion. Based on preoperative CT scan, we identified desired bowl central base plate screw direction, length, and orientation. The glenoid guide pin was 1st placed, tapped, and reamed. The base plate was inserted. Excellent compression/stabilization was achieved. 4 peripheral locking screws were then placed. Chamfer Reamer was utilized. The glenosphere was applied and the retaining screw applied appropriately. We turned our attention back to the humerus prep. The humerus was sounded with reamers by hand. A broach was then trialed and found have excellent tension and orientation based on bicipital and proximal pectoralis major tendon. Cement was mixed on the back table and inserted into the canal after thorough irrigation normal saline and drying with Ray-Isidro. The stem was inserted consistent with a rotation and height that the trial allowed. Once the cement cured, the polyethylene was opened and inserted. The shoulder was reduced and found to have excellent tension of the conjoined tendon as well as reduce ability to the joint. The greater and lesser tuberosities were repaired after the sutures had been passed through the proximal stem. 3 quality sutures were utilized was subscapularis/lesser tuberosity and 2 quality sutures for the supraspinatus. This was primarily with suture tape. 3 minute Betadine soak was then performed followed by thorough irrigation normal saline. Closure performed with 0 Vicryl for deltopectoral reapproximation distally, 3-0 Vicryl for subcutaneous and 4-0 Monocryl for subcuticular closure. Skin glue was applied and dressings were applied. The patient was awoken from anesthesia transferred recovery room in stable condition. A skilled assistant professor of english was critical for this case to aid in patient positioning, tissue retraction, limb manipulation/positioning, retraction for glenoid exposure, which was challenging, awareness and protection of critical structures, and closure. PLAN: 1. Sling at all times for the operative upper extremity. 2. AROM of elbow, forearm, wrist, and digits as tolerated. 3. PT/OT consults for education and assistance. 4. Social consult for discharge planning. 5. 23 hr perioperative antibiotics. 6. Early ambulation, and SCDs for DVT prophylaxis. 7. Admit to the hospital for the above 8. Analgesics p.r.n.
--- NOTE | 2024-02-13 16:45 | XR_ITS ---
Patient: CHENG ALAS Facility:?[facility] Patient ID:?[id number] Site Patient ID:?[id number]. Site :?[id number] Study:?XRay-Shoulder Right 2V-02/13/2024 5:10:06 PM Ordering Physician:DESMOND Final Report: Indication: Postop Technique: Two views right shoulder Findings/Impression: Hardware from a right total shoulder arthroplasty is in satisfactory position. Bone alignment is normal. No sign of acute fracture. Postop changes are within normal limits. Dictated by Blake Beatty MD @ 02/14/2024 12:15:11 PM (Electronic Signature)
--- NOTE | 2024-02-13 16:54 | P.ANES_ITS ---
Anesthesia Charges Start Date/Time Anesthesia Start Date: 02/13/24 Anesthesia Start Time: 13:44 Stop Date/Time Anesthesia Stop Date: 02/13/24 Anesthesia Stop Time: 16:33 Summary Emergency: PIG FURNACE OPERATOR Extremes of Age - Over 70 or under 1: PIG FURNACE OPERATOR
--- NOTE | 2024-02-13 16:54 | W.ANESCHARGE ---
Anesthesia Charges Start Date/Time Anesthesia Start Date: 02/13/24 Anesthesia Start Time: 13:44 Stop Date/Time Anesthesia Stop Date: 02/13/24 Anesthesia Stop Time: 16:33 Summary Emergency: ASSISTANT BOOKKEEPER Extremes of Age - Over 70 or under 1: ASSISTANT BOOKKEEPER
--- NOTE | 2024-02-13 17:32 | PC.NURSE ---
170 pt return to [facility], report received. Pt very somnolent but opens eyes to name briefly. Andrea
--- NOTE | 2024-02-13 17:33 | PC.NURSE ---
follow directions with squeezing left hand. Right arm in sling and unable to move or feel.. Good distal pulse and warm to touch. Received a subclavicular block per report. Initial sats on RA 85%. Per report she was up to 6L and then weaned down. Pt placed back on 3l and has continuous sat monitor on. ebl was 200cc. SO at BS and supportive.
--- NOTE | 2024-02-13 18:41 | PC.NURSE ---
Pt on bedpan, voided 150cc light yellow without diff. All cares explained. SO at BS
--- NOTE | 2024-02-13 20:33 | PC.NURSE ---
shift note: pt returned to rm from pacu @ 1715 via bed. pt deena sleepy. vss per post op protocol initiated. pt on 3L pnc O2 for sats >90%. LS clr. IV patent. pt incont of urine lg amount and also up to bsc for void.
[2024-02-13] MEDS: SENNOSIDES 1 TAB TABLET 2 TAB PO (20:38)
[2024-02-13] MEDS: OXYCODONE 5 MG TABLET PO (20:38)
[2024-02-14 03:00] VITALS: BP 101/63; PULSE 71; RESP 16; TEMP 36.8; O2SAT 93
[2024-02-14] MEDS: CEFAZOLIN 2 GM in 0.9 % SODIUM CHLORIDE Mini-bag 100 ML IVPB (03:38)
[2024-02-14] MEDS: LACTATED RINGERS 1000 ML 1,000 ML 75 ML IV (03:38)
--- NOTE | 2024-02-14 06:54 | PC.NURSE ---
End of shift report [id number]: Patient drowsy and sedated at start of shift post surgical. O2 weaned to room air and patient able to maintain sats >92%. Dressing to right upper arm clean, dry and intact. Pain well managed with current regimen. Patient reporting tingling/numbness to fingers, patient able to wiggle fingers and capillary refill < 3 seconds. Arm elevated on pillows and in supportive sling this shift, ice pack to operative site. Up with SBA to toilet. Tolerating fluids and food without nausea.
[2024-02-14 07:00] VITALS: BP 117/80; PULSE 69; RESP 16; TEMP 36.9; O2SAT 98
[2024-02-14] MEDS: ACETAMINOPHEN 325 MG TABLET 650 MG PO (08:57)
[2024-02-14 08:59] LABS: Basophils Absolute Auto 0.01 K/uL (0.00-0.30); Basophils Percent Auto 0.1 % (0.0-3.0); Eosinophils Absolute Auto 0.01 K/uL (0.00-0.50); Eosinophils Percent Auto 0.1 % (0.0-7.0); Hematocrit 32.2 % (33.0-51.0); Hemoglobin* 10.8 gm/dL (12.0-16.0); Immature Granulocytes Abs Auto 0.01 K/uL (0.00-0.30); Immature Granulocytes Pct Auto 0.1 %; Lymphocytes Percent Auto 13.8 % (20-44); Mean Corpuscular HGB Conc 34 gm/dL (32-36); Mean Corpuscular Hemoglobin 31 pg (26-34); Mean Corpuscular Volume 92 fL (80-100); Monocytes Percent Auto 10.2 % (0.0-11.0); Neutrophils Percent Auto 75.7 % (42.0-72.0); Platelet Count* 220 K/uL (140-440); RDW Coefficient of Variation % 13.1 % (11.5-15.5); Red Blood Count 3.51 m/uL (4.00-5.20); White Blood Count* 7.67 K/uL (4.50-11.00)
[2024-02-14 09:10] LABS: Slide Review Reflex No
[2024-02-14 09:14] LABS: Chloride* 106 mmol/L (96-114); Potassium* 3.8 mmol/L (3.6-5.1); Sodium* 138 mmol/L (135-149)
[2024-02-14 09:16] LABS: Creatinine* 0.5 mg/dL (0.5-1.5); Est. Creatinine Clearance* 56.35; Estimated Glomerular Filt Rate 104 ml/min
[2024-02-14 09:17] LABS: Anion Gap 6 mEq/L (7-15); Blood Urea Nitrogen* 18 mg/dL (7-30); Calcium* 8.9 mg/dL (8.4-10.6); Carbon Dioxide* 26 mmol/L (20-32); Glucose* 100 mg/dL (60-115)
[2024-02-14] MEDS: LIDOCAINE 5% PATCH 1 PATCH TRANSDERMA (10:36)
[2024-02-14] MEDS: hydrOXYzine pamoate 25 MG CAPSULE PO (10:39)
[2024-02-14] MEDS: HYDROCODONE-ACETAMIN 5-325 MG 1 TAB PO (11:08)
--- NOTE | 2024-02-14 11:46 | P.ORPN_ITS ---
Subjective Subjective Date Seen: 02/14/24 Principal diagnosis: Status postop day 1 right reverse total shoulder arthroplasty Interval history: Patient reports doing okay. No acute events over night. Pain managed with scheduled and PRN medications, ice. DVT prophylaxis: SCDs, walking. Denies fevers, chills, aches, N/V, CP, SOB/HE, or lightheadedness. The nurse contacted me later on stating that patient is having more difficulty with pain control, requesting a different medications such as Corydon. They are also requesting lidocaine patch. Ortho Exam Narrative Exam Narrative: -Patient appears comfortable in recliner; no apparent acute distress -Alert and oriented times 3 -Operative shoulder swollen; soft, supple tissues; no obvious erythema. No significant ecchymosis. Warmth appropriate -Surgical dressing clean, dry, intact; no obvious drainage, no erythematous streaking peripheral to the bandage -Bilateral calves soft and supple; no significant swelling, edema, tenderness, erythema, discoloration, warmth, or palpable cords -2+ radial pulse, intact dermatomes and myotomes distally (5/5 strength). Her wrist extension is weak but present. Numb through the forearm. Intact sensation lateral deltoid Const Vital Signs, click to edit/add: Vital Signs - 24 hr 02/13/24 12:08 02/13/24 13:25 02/13/24 13:34 Temperature 98.2 F Pulse Rate 60 66 Pulse Rate [Left Pulse Oximeter] 63 Respiratory Rate 16 16 14 Blood Pressure 123/77 94/65 Blood Pressure [Left Arm] 115/70 Pulse Oximetry 91 100 97 Oxygen Delivery Method Room Air Room Air Nasal Cannula Oxygen Flow Rate 2 2 02/13/24 16:28 02/13/24 16:33 02/13/24 16:38 Temperature 97.5 F L Pulse Rate 64 64 60 Pulse Rate [Left Pulse Oximeter] Respiratory Rate 13 12 12 Blood Pressure 94/53 L 98/58 L 101/60 Blood Pressure [Left Arm] Pulse Oximetry 98 98 98 Oxygen Delivery Method Nasal Cannula Nasal Cannula Nasal Cannula Oxygen Flow Rate 6 6 4 02/13/24 16:43 02/13/24 16:48 02/13/24 16:53 Temperature Pulse Rate 62 60 61 Pulse Rate [Left Pulse Oximeter] Respiratory Rate 12 12 12 Blood Pressure 101/59 L 95/57 L 100/62 Blood Pressure [Left Arm] Pulse Oximetry 94 91 94 Oxygen Delivery Method Nasal Cannula Nasal Cannula Nasal Cannula Oxygen Flow Rate 0 0 2 02/13/24 17:03 02/13/24 17:15 02/13/24 17:15 Temperature 97.2 F L 97.5 F L 97.5 F L Pulse Rate 61 63 Pulse Rate [Left Pulse Oximeter] 63 Respiratory Rate 12 16 16 Blood Pressure 101/64 101/60 Blood Pressure [Left Arm] 101/60 Pulse Oximetry 94 93 93 Oxygen Delivery Method Nasal Cannula Nasal Cannula Nasal Cannula Oxygen Flow Rate 2 3 3 02/13/24 17:15 02/13/24 17:30 02/13/24 17:45 Temperature 97.5 F L 97.5 F L 97.5 F L Pulse Rate 63 66 59 L Pulse Rate [Left Pulse Oximeter] Respiratory Rate 16 16 16 Blood Pressure 101/60 90/64 96/60 Blood Pressure [Left Arm] Pulse Oximetry 93 96 92 Oxygen Delivery Method Nasal Cannula Nasal Cannula Nasal Cannula Oxygen Flow Rate 3 3 3 02/13/24 18:00 02/13/24 18:15 02/13/24 18:45 Temperature 97.5 F L 97.5 F L 97.5 F L Pulse Rate 69 79 67 Pulse Rate [Left Pulse Oximeter] Respiratory Rate 16 18 18 Blood Pressure 109/72 127/75 112/69 Blood Pressure [Left Arm] Pulse Oximetry 92 92 92 Oxygen Delivery Method Nasal Cannula Nasal Cannula Nasal Cannula Oxygen Flow Rate 3 3 3 02/13/24 19:15 02/13/24 20:15 02/13/24 21:15 Temperature 97.7 F 98.2 F 98.1 F Pulse Rate 68 84 62 Pulse Rate [Left Pulse Oximeter] Respiratory Rate 16 18 16 Blood Pressure 121/69 118/86 106/65 Blood Pressure [Left Arm] Pulse Oximetry 97 97 97 Oxygen Delivery Method Nasal Cannula Nasal Cannula Nasal Cannula Oxygen Flow Rate 3 1.5 1 02/13/24 22:15 02/13/24 23:00 02/13/24 23:15 Temperature 98.4 F 98.3 F Pulse Rate 64 63 Pulse Rate [Left Pulse Oximeter] Respiratory Rate 16 16 18 Blood Pressure 97/58 L 93/60 Blood Pressure [Left Arm] Pulse Oximetry 97 97 Oxygen Delivery Method Room Air Nasal Cannula Oxygen Flow Rate 02/14/24 03:00 02/14/24 07:00 Temperature 98.3 F 98.5 F Pulse Rate Pulse Rate [Left Pulse Oximeter] 71 69 Respiratory Rate 16 16 Blood Pressure Blood Pressure [Left Arm] 101/63 117/80 Pulse Oximetry 93 98 Oxygen Delivery Method Room Air Room Air Oxygen Flow Rate Assessment and Plan Assessment and plan (1) Status post reverse total arthroplasty of right shoulder: Problem details: 02/13/2024 Status: Acute (2) Humeral fracture: Problem details: CT shows acute comminuted moderately displaced impacted fracture of the right humeral head and surgical neck with involvement of both tuberosities and the bicipital groove Dr. Logan recommending surgical intervention, possibly this afternoon otherwise Remains NPO for now Pain and nausea management to include lidocaine patch, Vistaril p.r.n., Dilaudid p.r.n., ice, Compazine/Zofran PT/OT when appropriate Status: Acute (3) Inadequate pain control: Problem details: Difficulties with pain control due to nausea from opioids. Reports a short- term, suboptimal response to hematoma block with Marcaine Status: Acute (4) Rib fracture: Problem details: Possible fracture of right 7th rib. Consider chest x-ray when pain control is better. May need to wait postoperatively as limited ROM RUE Status: Suspected (5) Hip pain, right: Problem details: Status post fall. Pelvis/right hip x-ray ordered Pain management as above Status: Acute Plan - Complete 23 hour perioperative antibiotics. - PT/OT consult for education and assistance. - Social work consult for discharge planning - Prescribed analgesics as needed - DVT prophylaxis: SCDs and walking. - she was switched to Corydon in the hospital, as well as lidocaine patch continue. We will see how this Corydon works for managing her pain, possibly consider providing Corydon for discharge pain option versus oxycodone. - Anticipation is for discharge to home with spouse 02/14/2024 if the patient remains medically stable, pain is controlled, and they are safe with mobilization.
[2024-02-14] MEDS: TRAMADOL HCL 50 MG TABLET PO (12:32)
[2024-02-14] MEDS: TIZANIDINE HCL 4 MG TABLET PO (12:32)
--- NOTE | 2024-02-14 14:16 | PM.DS1 ---
DS: Providers Provider Date Seen: 02/14/24 Date of admission: 02/13/24 12:59 Primary care physician: Milagro Eden PA-C Admitting Clinician: Kirt Rosario MD Consults: 02/12/24 23:21 Consult to Occupational Therapy [CONS] Routine Comment: Reason(s) for OT Consult:: Evaluate and Treat Any Restrictions?:: No Restrictions Consult to Physical Therapy [CONS] Routine Comment: Reason(s) for PT Consult:: Evaluate and Treat Any Restrictions?:: No Restrictions Consult to Physician [CONS] Routine Comment: Consulting Provider: Manuel Logan Has provider been notified: Yes Consult to Bus Driver Supervisor [CONS] Routine Comment: Reason for Consult:: Discharge Planning Needs 02/13/24 16:17 Consult to Occupational Therapy [CONS] Routine Comment: Reason(s) for OT Consult:: Evaluate and Treat Any Restrictions?:: Non Wt Bearing Comment: No wt bear RUE; Sling at all times Consult to Physical Therapy [CONS] Routine Comment: Reason(s) for PT Consult:: Evaluate and Treat Any Restrictions?:: No Restrictions Consult to Physician [CONS] Routine Comment: Consulting Provider: Hospitalists Has provider been notified: Yes Attending Physician on discharge: DEJA Forbes PA-C [facility] Date of Discharge: 02/14/24 DS: Diagnosis Discharge Diagnosis (1) Humeral fracture: Status: Acute Problem details: CT shows acute comminuted moderately displaced impacted fracture of the right humeral head and surgical neck with involvement of both tuberosities and the bicipital groove On day of discharge, POD#1 s/p reverse total shoulder arthroplasty with Dr. Logan PT and OT consulted, instructing patient and spouse on home cares. Will have outpatient therapy as well. Therapy encouraged spouse to be patient and slow down during assistance with cares and therapies. Patient noted to be more anxious during this session. (2) Inadequate pain control: Status: Acute Problem details: Difficulties with pain control due to nausea from opioids. Reports a short-term, suboptimal response to hematoma block with Marcaine on admission prior to surgery. Discharged with Tylenol as needed (max 4 g daily in addition to Flynn dosing), Flynn as needed - most tolerated thus far, Zanaflex, Zofran. OTC lidocaine patch can be used and should not be placed on or near surgical site/incision Encouraged to be slow and patient with rehabilitation (3) Rib fracture: Status: Suspected Problem details: Possible fracture of right 7th rib as noted on shoulder x-ray. Pain management as above. Outpatient follow-up with repeat imaging as needed (4) Hip pain, right: Status: Acute Problem details: Status post fall. Pelvis/right hip x-ray negative for acute fracture Pain management as above DS: Summary Hospital Course Hospital Course: [age] year old female without significant past medical history was admitted to the medical floor for right humeral fracture status post fall. Course of care and details as noted above. Patient is at risk for possible bounce back in setting of current anxiety, pain management, assistance with personal needs from spouse in returning home. Patient and spouse educated on therapies, pain management including non medication options, nausea management given sensitivities to narcotics. Remainder of chronic medical comorbidities were monitored and managed with home medications. Status at Discharge Overall status at discharge: patient is progressing back to baseline Time Spent with Patient Time attestation: Total time spent providing and/or coordinating discharge services: Time spent: Greater than 30 minutes Exam Narrative: Exam Narrative: PHYSICAL EXAM General: Pleasant, conversant, NAD Cardiovascular: RRR Pulmonary: No dyspnea Neurological: Alert, answering questions appropriately Skin: Warm, dry. Const: Vital Signs, click to edit/add: Vital Signs - 24 hr 02/13/24 16:28 02/13/24 16:33 02/13/24 16:38 Temperature 97.5 F L Pulse Rate 64 64 60 Pulse Rate [Left P ulse Oximeter] Respiratory Rate 13 12 12 Blood Pressure 94/53 L 98/58 L 101/60 Blood Pressure [Le ft Arm] Pulse Oximetry 98 98 98 Oxygen Delivery Me thod Nasal Cannula Nasal Cannula Nasal Cannula Oxygen Flow Rate 6 6 4 02/13/24 16:43 02/13/24 16:48 02/13/24 16:53 Temperature Pulse Rate 62 60 61 Pulse Rate [Left P ulse Oximeter] Respiratory Rate 12 12 12 Blood Pressure 101/59 L 95/57 L 100/62 Blood Pressure [Le ft Arm] Pulse Oximetry 94 91 94 Oxygen Delivery Me thod Nasal Cannula Nasal Cannula Nasal Cannula Oxygen Flow Rate 0 0 2 02/13/24 17:03 02/13/24 17:15 02/13/24 17:15 Temperature 97.2 F L 97.5 F L 97.5 F L Pulse Rate 61 63 Pulse Rate [Left P ulse Oximeter] 63 Respiratory Rate 12 16 16 Blood Pressure 101/64 101/60 Blood Pressure [Le ft Arm] 101/60 Pulse Oximetry 94 93 93 Oxygen Delivery Me thod Nasal Cannula Nasal Cannula Nasal Cannula Oxygen Flow Rate 2 3 3 02/13/24 17:15 02/13/24 17:30 02/13/24 17:45 Temperature 97.5 F L 97.5 F L 97.5 F L Pulse Rate 63 66 59 L Pulse Rate [Left P ulse Oximeter] Respiratory Rate 16 16 16 Blood Pressure 101/60 90/64 96/60 Blood Pressure [Le ft Arm] Pulse Oximetry 93 96 92 Oxygen Delivery Me thod Nasal Cannula Nasal Cannula Nasal Cannula Oxygen Flow Rate 3 3 3 02/13/24 18:00 02/13/24 18:15 02/13/24 18:45 Temperature 97.5 F L 97.5 F L 97.5 F L Pulse Rate 69 79 67 Pulse Rate [Left P ulse Oximeter] Respiratory Rate 16 18 18 Blood Pressure 109/72 127/75 112/69 Blood Pressure [Le ft Arm] Pulse Oximetry 92 92 92 Oxygen Delivery Me thod Nasal Cannula Nasal Cannula Nasal Cannula Oxygen Flow Rate 3 3 3 02/13/24 19:15 02/13/24 20:15 02/13/24 21:15 Temperature 97.7 F 98.2 F 98.1 F Pulse Rate 68 84 62 Pulse Rate [Left P ulse Oximeter] Respiratory Rate 16 18 16 Blood Pressure 121/69 118/86 106/65 Blood Pressure [Le ft Arm] Pulse Oximetry 97 97 97 Oxygen Delivery Me thod Nasal Cannula Nasal Cannula Nasal Cannula Oxygen Flow Rate 3 1.5 1 02/13/24 22:15 02/13/24 23:00 02/13/24 23:15 Temperature 98.4 F 98.3 F Pulse Rate 64 63 Pulse Rate [Left P ulse Oximeter] Respiratory Rate 16 16 18 Blood Pressure 97/58 L 93/60 Blood Pressure [Le ft Arm] Pulse Oximetry 97 97 Oxygen Delivery Me thod Room Air Nasal Cannula Oxygen Flow Rate 02/14/24 03:00 02/14/24 07:00 Temperature 98.3 F 98.5 F Pulse Rate Pulse Rate [Left P ulse Oximeter] 71 69 Respiratory Rate 16 16 Blood Pressure Blood Pressure [Le ft Arm] 101/63 117/80 Pulse Oximetry 93 98 Oxygen Delivery Me thod Room Air Room Air Oxygen Flow Rate DS: Data Data Completed and Pending Labs on day of discharge: Labs from last 24 hours 02/14/24 08:52 WBC 7.67 RBC 3.51 L Hgb 10.8 L Hct 32.2 L MCV 92 MCH 31 MCHC 34 RDW Coeff of Yunier 13.1 Plt Count 220 Neut % (Auto) 75.7 H Lymph % (Auto) 13.8 L [place] % (Auto) 10.2 Eos % (Auto) 0.1 Baso % (Auto) 0.1 Neut # (Auto) 5.80 Lymph # (Auto) 1.10 [place] # (Auto) 0.80 Eos # (Auto) 0.01 Baso # (Auto) 0.01 Abs Immat Gran (auto) 0.01 Imm/Tot Granulo (auto) 0.1 Sodium 138 Potassium 3.8 Chloride 106 Carbon Dioxide 26 Anion Gap 6 L BUN 18 Creatinine 0.5 Estimated Creat Clear 56.35 Estimated GFR 104 Glucose 100 Calcium 8.9 Imaging Pelvis/hip x-ray: Attestation: I have reviewed the pertinent imaging results. Radiologist's impression: Pelvis/right hip, 3 views. Comparison: None. Findings/Impression: Bones: Alignment is normal. No displaced fractures or bone lesions. Joint spaces: Unremarkable. Soft tissues: Unremarkable. CT shoulder: Attestation: I have reviewed the pertinent imaging results. Radiologist's impression: Right shoulder fracture. Technique: Noncontrast CT of the right shoulder. Please note that all CT scans at this facility use dose modulation, iterative reconstruction, and/or weight-based dosing when appropriate to reduce radiation dose to as low as reasonably achievable. Comparison: Right shoulder radiographs 01/13/2024 Findings: Acute, comminuted, moderately displaced, impacted fracture of the right humeral head and surgical neck with involvement of both tuberosities and the bicipital groove. Associated joint effusion, likely hemarthrosis. No dislocation of the humeral head from glenoid fossa. The scapula and clavicle are intact. No aggressive osseous lesion. The imaged lung parenchyma is unremarkable. No pneumothorax. The surrounding soft tissues are otherwise unremarkable. Impression: Acute, comminuted, moderately displaced, impacted fracture of the right humeral head and surgical neck with involvement of both tuberosities and the bicipital groove. Shoulder x-ray: Attestation: I have reviewed the pertinent imaging results. Radiologist's impression: Right shoulder 2 view. COMPARISON: None. FINDINGS: Exam is significantly limited by suboptimal positioning. There appears to be an acute comminuted fracture of the left humeral head/neck with medial displacement of the distal fracture fragment. No definite dislocation. Possible fracture of the right 7th rib. Soft tissues are unremarkable. IMPRESSION: 1. There appears to be an acute comminuted displaced fracture of the proximal humerus, however evaluation is limited. 2. Possible fracture of the right 7th rib. Additional Comments Additional comments: Consider repeat imaging, CXR/rib, as an outpatient if new or worsening or persistent symptoms Discharge Plan Discharge Disposition: Home, Self-Care Date of Admission: 02/13/24 12:59 Attending Provider on Discharge: Jacqueline Meléndez Consulting Providers: Manuel Logan; Ally Otto; Gaston Snowden; Lio Andersen; Jacqueline Meléndez; Chantal Tom; Tawana Maradiaga; Ariana Jewell; Artem Devries; Yola Richards; Donato Seals; Kirt Rosario; Erasmo Garcia; Vitaliy Caro; Juan Roach; Lesa Grullon; Gabrielle Eden; Luis Lyons; Ulises De La Rosa; Aaron Love; Spike Garcia; Kenan Reeves; Dionte Banda Primary Care Provider: Milagro Eden Condition: Improved Anticipated Discharge Date/Time: 02/14/24 15:00 Discharge Medications: New sennosides-docusate sodium [Senna-S] 8.6-50 mg tablet 1 - 4 tab-cap PO BID PRN (Reason: constipation) Qty: 60 0RF Rx Instructions: Hold medication if experiencing loose stools. tizanidine 4 mg Tablet 4 mg PO TID PRNQty: 15 0RF ondansetron 4 mg tablet,disintegrating 4 mg PO Q6H PRN (Reason: nausea and vomiting) Qty: 15 0RF hydrocodone-acetaminophen 5-325 mg tablet 1 tab PO Q6H PRN (Reason: pain) Qty: 20 0RF Continued fluticasone propionate 50 mcg/actuation spray,suspension 1 - 2 spray INTRANASAL DAILY PRN Discontinued ibuprofen [IBU-200] 200 mg tablet 200 mg PO Q8H PRN Discharge Orders: Discharge Order (Routine); Ordered 02/14/24 Ordered By: Jacqueline Meléndez Patient Education: Hydrocodone/Acetaminophen (By mouth), Ondansetron (By mouth), Tizanidine (By mouth), Senna (By mouth) (Sen, Senna-lax), Shoulder Arthroplasty (DC) Activity Level: Activity as Tolerated Activity Detail: Wound: ? Maintain original dressing; we will remove this at first post-op visit in 1 week. Only remove dressing if integrity is in question. ? No immersing wound in water; showering okay with bandage in place; light scrub with your hand and body soap, rinse, dab dry. After the bandage is removed in 1-week, the same shower instructions apply. ? Sutures are under the skin, will dissolve over time; allow surgical glue to come off naturally; do not scrub the wound or apply ointments/lotions. ? Call our office with any redness that streaks, excessive drainage from the wound, or wound gapping. Ice/Elevate: ? Ice as needed for swelling and discomfort (cryocuff or ice pack), typically 20min on/20min off. It is okay if you fall asleep with ice/cryocuff in place if there is a barrier between you and the ice to prevent skin harm. Elevate hand/forearm above the heart via propping on pillows. Motion/Exercise: ? Walk as tolerated. ? No Weight bear operative extremity ? Range of motion of any joint (including fingers) out of splint 10+ times per day as tolerated (Elbow, forearm, wrist, digits). Shoulder pendulums are encouraged. ? Sling to be worn most of time: May remove for showering, ROM as noted above, pendulums, and if sedentary in a safe / stable environment - it is to be a reminder not to reach for things or rotate the shoulder. ? No lifting greater than coffee cup in weight, operative extremity ? PT/OT exercises as explained/prescribed. Pain Medications: ? Oral narcotic as prescribed. Wean as tolerated. Additional acetaminophen and ibuprofen as needed. Over the counter lidocaine patch can be used. DO NOT PLACE OVER SURGICAL SITE OR INCISION Driving: ? Do not drive while taking narcotic pain medication. ? Do not drive with the sling on. ? If driving, do not use operative extremity to control the steering wheel. Dental: ? No elective dental work for 6 months post-op. If there is an urgent/emergent dental need, contact our office for an antibiotic prescription. Smoking/Alcohol: ? Do not smoke; do no drink alcohol especially when taking postoperative oral narcotic medication. Seek Care from your Primary Care Provider if you experience the following issues in the postoperative phase and beyond: ? Bacterial infections such as: pneumonia, bacterial skin infection (cellulitis), UTI, high fever, chills unrelated to the operative body part - call your primary care physician urgently for treatment in hopes to protect your health and the metal implant(s). Referrals: ? PT, OT per patient preference ? evaluate [] total shoulder arthroplasty protocol (PROM, elbow motion, pendulums, ADLs) Vaccines: ? No vaccines until 4-6 weeks postop Follow up: ? KIERA visit in 1 week ? Ortho surgeon follow-up in 6 weeks; repeat radiographs three views operative shoulder If there are any acute concerns regarding your surgery, please call our orthopedic clinic ([phone]) Discharge Diet: Regular Follow Up Appointments: Milagro Eden PA-C [Primary Care Provider] - Forms: [facility] Info Instructions
[2024-02-14 14:31] VITALS: BP 87/51; PULSE 65; RESP 16; TEMP 36.8; O2SAT 94
--- NOTE | 2024-02-14 15:21 | PC.NURSE ---
The patient discharged home with her via wheelchair. R arm in sling.. the patient reports decreased pain in her R shoulder. No pain in her R hip. Dressing is CDI... Ice packs were sent with the patient. The patient was also educated on use of the I/S and weight restrictions as well as follow up appointments. I let them know that they can purchase lidocaine patches over the counter for her shoulder. Aida FRIAS BSN
== END 2024-02-14 15:19 | disposition home or self-care (01) | DRG 315 ==
LOC: ED 22:32 → MEDSURG 02-13 01:05
PROVIDERS: Orthopaedic Surgery Sports Medicine; Physician Assistant; Admitting Provider Family Medicine; Emergency Provider Emergency Medicine; PCP Physician Assistant Medical; Visit Provider Family Medicine
PROC: 0RRJ0JZ Replacement of Right Shoulder Joint with Synthetic Substitute, Open Approach (ICD-10-PCS; CPT 23472; principal; 2024-02-13 13:45)
DX: S42.241A 4-part fracture of surgical neck of right humerus, initial encounter for closed fracture (principal); W01.0XXA Fall on same level from slipping, tripping and stumbling without subsequent striking against object, initial encounter; Y93.K1 Activity, walking an animal; S22.31XA Fracture of one rib, right side, initial encounter for closed fracture; M25.551 Pain in right hip; G89.18 Other acute postprocedural pain; S80.01XA Contusion of right knee, initial encounter
CPT/HCPCS: 01638; 36415; 64415; 73030; 73200; 73502; 76942; 80048; 85025; 93005; 97110; 97116; 97162; 97165; 97530; 97535; 99100; 99140; 99283; 99284; 99285; A9270; C1713; C1776; G0378; J0330; J0690; J0780; J1100; J1170; J2250; J2371; J2405; J2704; J2710; J2795; J3010; J7120

== ENCOUNTER 2024-05-29 09:43 | Outpatient (CLI) | payer BC, SELFPAY ==
--- NOTE | 2024-05-29 10:00 | CRLHL7_ITS ---
For Patients: As a result of the Century Cures Act, medical imaging exams and procedure reports are released immediately into your electronic medical record. You may view this report before your referring provider. If you have questions, please contact your health care provider. INDICATION: Shoulder pain. Reverse total shoulder arthroplasty. Assess for acromial process fracture. COMPARISON: 12 Feb 2024. TECHNIQUE: Multidetector noncontrast images right glenohumeral joint with axial, coronal and sagittal reformats. FINDINGS: New from comparison reversed shoulder arthroplasty. Anatomic alignment. Small curvilinear area of heterotopic ossification or remote fracture fragment ventral from the cup of the humeral component. Subtle chronic appearing transverse lucency along the medial and posterior metaphysis at the base of the cup at the transition into the stem (image 70 series 5). Some extruded cement along the posterior margin of this chronic appearing lucency. Humeral stem extends below the field of view. Thin gracile curvilinear ossicle 12 mm in length abuts along the posterior superior margin of the glenoid ball (image 39 series 4 and image 71 series 5). Curved gracile acromion. No fracture. Normal AC joint. No scapular fracture. No acute rib fracture. No joint effusion. No soft tissue mass. IMPRESSION: 1. Intact acromion. 2. Likely chronic fracture lucency of the humeral metaphysis below the humeral articular cup with some extruded cement dorsally. 3. Likely remote chronic fracture fragment abutting the posterior superior margin glenoid ball. Please note that all CT scans at this facility use dose modulation, iterative reconstruction, and/or weight-based dosing when appropriate to reduce radiation dose to as low as reasonably achievable. Dictated by Villa Parks MD @ 05/30/2024 10:21:22 AM (Electronically Signed)
== END 2024-05-29 09:44 | disposition home or self-care (01) ==
LOC: CT 09:44
PROVIDERS: PCP Physician Assistant Medical; Visit Provider Orthopaedic Surgery Sports Medicine
DX: M25.511 Pain in right shoulder (principal); S42.124A Nondisplaced fracture of acromial process, right shoulder, initial encounter for closed fracture
CPT/HCPCS: 73200

== ENCOUNTER 2024-06-26 08:10 | Outpatient (CLI) | payer BC, SELFPAY ==
--- NOTE | 2024-06-26 08:45 | CRLHL7_ITS ---
For Patients: As a result of the Century Cures Act, medical imaging exams and procedure reports are released immediately into your electronic medical record. You may view this report before your referring provider. If you have questions, please contact your health care provider. BILATERAL SCREENING MAMMOGRAM WITH COMPUTER-AIDED DETECTION AND TOMOSYNTHESIS TECHNIQUE: CC and MLO views were obtained. These mammographic images have been obtained using full-field digital technique. These mammographic images were interpreted with the benefit of computer-aided detection. Breast Tomosynthesis was used in this interpretation. COMPARISON FILM: 01/31/22, 06/17/20, 05/07/19. FINDINGS: The breasts are heterogeneously dense, which may obscure small masses. IMPRESSION: There is no radiographic evidence for malignancy. ASSESSMENT: BI-RADS Category 2: Benign RECOMMENDATION: Routine screening mammogram in 1 year. A lay language report of this examination will be provided to the patient. Blake Beatty M.D. Diagnostic Radiologist [email or web address] SP/Dictated by: Blake Beatty MD @ 07/04/2024 9:25:00 AM (Electronically Signed)
== END 2024-06-26 08:11 | disposition home or self-care (01) ==
LOC: MAMMO 08:12
PROVIDERS: PCP Physician Assistant Medical; Visit Provider Physician Assistant Medical
DX: Z12.31 Encounter for screening mammogram for malignant neoplasm of breast (principal); R92.333 Mammographic heterogeneous density, bilateral breasts
CPT/HCPCS: 77063; 77067

== ENCOUNTER 2024-07-02 07:39 | Outpatient (CLI) | payer BC, SELFPAY | END 2024-07-02 07:40 | disposition home or self-care (01) | PROVIDERS: PCP Physician Assistant Medical; Visit Provider Physician Assistant Medical | DX: Z00.00 Encounter for general adult medical examination without abnormal findings (principal); Z13.6 Encounter for screening for cardiovascular disorders; Z13.29 Encounter for screening for other suspected endocrine disorder; Z13.21 Encounter for screening for nutritional disorder | CPT/HCPCS: 80053; 80061; 82306; 84443 ==

== ENCOUNTER 2024-08-06 15:04 | Outpatient (CLI) | payer BC, SELFPAY ==
--- NOTE | 2024-08-06 15:30 | CRLHL7_ITS ---
For Patients: As a result of the Century Cures Act, medical imaging exams and procedure reports are released immediately into your electronic medical record. You may view this report before your referring provider. If you have questions, please contact your health care provider. DXA BONE MINERAL DENSITY STUDY Reason for exam: Osteoporosis screening. Current height (in): 69. Weight (lb): 143. Menopause age: 48. Ethnicity: White. 1. Have you had a previous hip or vertebral fracture? No. 2. Have you had any fractures during your adult life which did not result from significant trauma (e.g., auto accident)? Yes. 3. Did either of your parents have a hip fracture? No. 4. Do you smoke? No. 5. Have you ever taken Glucocorticoids? No. 6. Do you have rheumatoid arthritis? No. 7. Do you have secondary osteoporosis? No. 8. Do you drink 3 or more alcoholic drinks per day? No. 9. Are you being treated for osteoporosis? No. 10. Have you ever taken any of the following medications: Actonel, Evista, Fosamax, Miacalcin, Reclast, Boniva, Forteo, HRT (i.e., estrogen/hormone therapy), Protelos, Prolia, Vitamin D, Calcium, other ??? please specify. ANSWER: No. 11. Do you have any of the following medical conditions: Anorexia or bulimia, asthma or emphysema, end stage renal disease, hyperparathyroidism, any seizure disorders, cancer, inflammatory bowel diseases, hysterectomy, other ??? please specify. ANSWER: Yes, hysterectomy. 12. What was your maximum height (inches)? Not provided. 13. Do you perform weight bearing exercise regularly? No. 14. Do you regularly consume dairy products? Yes. 15. Do you drink caffeinated beverages? No. 16. At what age did your period start? 11. 17. Are you premenopausal? No. 18. How many full-term pregnancies have you had? 2. 19. Have you ever missed your period for more than 6 months in a row (not including or menopause)? No. TECHNIQUE: Bone mineral density study was performed using the [employer]. FINDINGS: The results of the study expressed as bone mineral density (BMD) are as follows: Lumbar spine L1 to L4: BMD: 0.668 g/cm2. T-score: -3.4. Z-score: -1.6 Neck Left: BMD: 0.689 g/cm2. T-score: -1.4. Z-score: 0.1 Right: BMD: 0.586 g/cm2. T-score: -2.4. Z-score: -0.8 Total Left: BMD: 0.707 g/cm2. T-score: -1.9. Z-score: -0.7 Right: BMD: 0.666 g/cm2. T-score: -2.3. Z-score: -1.0 IMPRESSION: Osteoporosis. *Comparison exams done prior to 03/2020 were performed on different unit, [address]. Delonte KNOX:millie Transcribed: 5:19 p.m. [email or web address] millie/Dictated by: Michele Mireles MD @ 08/10/2024 10:34:00 PM (Electronically Signed)
== END 2024-08-06 15:05 | disposition home or self-care (01) ==
LOC: RAD 15:04
PROVIDERS: PCP Physician Assistant Medical; Visit Provider Physician Assistant Medical
DX: Z13.820 Encounter for screening for osteoporosis (principal); M81.0 Age-related osteoporosis without current pathological fracture; Z78.0 Asymptomatic menopausal state; Z87.81 Personal history of (healed) traumatic fracture
CPT/HCPCS: 77080

== ENCOUNTER 2025-01-14 07:25 | Outpatient (CLI) | payer OTHER, SELFPAY | END 2025-01-14 07:26 | disposition home or self-care (01) | LOC: NFLDREF 01-16 17:41 | PROVIDERS: PCP Physician Assistant Medical; Referring Provider Physician Assistant Medical; Visit Provider Physician Assistant Medical | DX: N30.00 Acute cystitis without hematuria | CPT/HCPCS: 87086 ==